=== PATIENT | female | born 1960 | race Caucasian/White ===

== ENCOUNTER 2023-09-14 16:40 | Emergency (ER) | payer MEDICAID ==
[~2023-09-14] VITALS: Ht 167.6 cm; Wt 101.6 kg
[2023-09-14 16:42] VITALS: BP 110/58; PULSE 74; RESP 17; TEMP 98.4; O2SAT 95
== END 2023-09-14 17:32 | disposition home or self-care (01) ==
LOC: MED 16:40
DX: F20.0 Paranoid schizophrenia (principal)
CPT/HCPCS: 99281